=== PATIENT | male | born 1990 | race African-American/Black ===

== ENCOUNTER 2017-07-15 21:12 | Inpatient (IN) | payer SELFPAY ==
[~2017-07-15] VITALS: Ht 177.8 cm; Wt 80.0 kg
[~2017-07-15 21:12] MED LIST: NAPR500 PO
[2017-07-15 21:33] VITALS: BP 130/78; PULSE 74; RESP 16; TEMP 98; O2SAT 100
[2017-07-15] MEDS ORDERED: SODIUM CHLOR 0.9% 1000 ML INJ 1,000 ML IV ONE ×2 (21:45→23:00)
[2017-07-15 22:11] LABS: AUTOMATED NEUTROPHIL # 7.2 TH/MM3 (1.8-7.7); BASOPHIL # 0.1 TH/MM3 (0-0.2); BASOPHIL % 1.2 % (0.0-2.0); EOSINOPHIL % 0.5 % (0.0-4.0); HEMATOCRIT 40.8 % (39.0-51.0); HEMO FLAGS DIFF FINAL; LYMPH % 12.1 % (9.0-44.0); LYMPHOCYTE # 1.1 TH/MM3 (1.0-4.8); MEAN CELL VOLUME 82.9 FL (80.0-100.0); MEAN CORPUSCULAR HEMOGLOBIN 28.4 PG (27.0-34.0); MEAN CORPUSCULAR HGB CONC 34.2 % (32.0-36.0); MONO % 6.1 % (0.0-8.0); NEUT % 80.1 % (16.0-70.0); PLATELET COUNT 179 TH/MM3 (150-450); RED BLOOD COUNT 4.92 MIL/MM3 (4.50-5.90); RED CELL DISTRIBUTION WIDTH 13.3 % (11.6-17.2)
--- NOTE | 2017-07-15 22:21 | PD ---
HPI Chief Complaint: Musculoskeletal Complaint Time Seen by Provider: 21:34 Travel History International Travel<30 days: No Contact w/Intl Traveler<30days: No Traveled to known affect area: No History of Present Illness HPI 26-year-old male with no significant medical history presents to emergency department for evaluation of generalized body cramping towards the end of his Route. 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 He states that he drank some water but no more or less than he usually does. Denies chest tightness. Denies difficulty breathing. States his urine has been darker today. Denies any recent illnesses, fever, chills. No other symptoms to report. PFSH Past Medical History Medical History: Denies Significant Hx Diminished Hearing: No Past Surgical History Surgical History: No Previous Surgery Social History Alcohol Use: No Tobacco Use: Yes (1 PPD) Substance Use: No Allergies-Medications (Allergen,Severity, Reaction): Coded Allergies: No Known Allergies (Verified , 07/15/17) Reported Meds & Prescriptions Reported Meds & Active Scripts Active Review of Systems Except as stated in HPI: all other systems reviewed are Neg Physical Exam Narrative GENERAL: Well-nourished male patient, in no acute distress SKIN: Focused skin assessment warm/dry. HEAD: Atraumatic. Normocephalic. EYES: Pupils equal and round. No scleral icterus. No injection or drainage. ENT: No nasal bleeding or discharge. Mucous membranes pink and moist. NECK: Trachea midline. No JVD. CARDIOVASCULAR: Regular rate and rhythm. No murmur appreciated. RESPIRATORY: No accessory muscle use. Clear to auscultation. Breath sounds equal bilaterally. GASTROINTESTINAL: Abdomen soft, non-tender, nondistended. Hepatic and splenic margins not palpable. MUSCULOSKELETAL: No obvious deformities. No clubbing. No cyanosis. No edema. NEUROLOGICAL: Awake and alert. No obvious cranial nerve deficits. Motor grossly within normal limits. Normal speech. PSYCHIATRIC: Appropriate mood and affect; insight and judgment normal. Data Data Last Documented VS Vital Signs Date Time Temp Pulse Resp B/P (MAP) Pulse Ox O2 Delivery O2 Flow Rate FiO2 07/15/17 23:56 71 16 146/89 (108) 100 Room Air 07/15/17 21:33 98.0 Orders Orders Iv Access Insert/Monitor (07/15/17 21:38) Complete Blood Count With Diff (07/15/17 21:38) Basic Metabolic Panel (Bmp) (07/15/17 21:38) Creatine Kinase (Cpk) (07/15/17 21:38) Urinalysis - C+S If Indicated (07/15/17 21:38) Sodium Chlor 0.9% 1000 Ml Inj (Ns 1000 M (07/15/17 21:45) CKMB (07/15/17 21:45) CKMB% (07/15/17 21:45) Sodium Chlor 0.9% 1000 Ml Inj (Ns 1000 M (07/15/17 23:00) Sodium Chlor 0.9% 1000 Ml Inj (Ns 1000 M (07/16/17 00:30) Labs Laboratory Tests Test 07/15/17 21:45 07/15/17 21:50 White Blood Count 9.0 TH/MM3 Red Blood Count 4.92 MIL/MM3 Hemoglobin 14.0 GM/DL Hematocrit 40.8 % Mean Corpuscular Volume 82.9 FL Mean Corpuscular Hemoglobin 28.4 PG Mean Corpuscular Hemoglobin Concent 34.2 % Red Cell Distribution Width 13.3 % Platelet Count 179 TH/MM3 Mean Platelet Volume 7.3 FL Neutrophils (%) (Auto) 80.1 % Lymphocytes (%) (Auto) 12.1 % Monocytes (%) (Auto) 6.1 % Eosinophils (%) (Auto) 0.5 % Basophils (%) (Auto) 1.2 % Neutrophils # (Auto) 7.2 TH/MM3 Lymphocytes # (Auto) 1.1 TH/MM3 Monocytes # (Auto) 0.5 TH/MM3 Eosinophils # (Auto) 0.0 TH/MM3 Basophils # (Auto) 0.1 TH/MM3 CBC Comment DIFF FINAL Differential Comment Blood Urea Nitrogen 27 MG/DL Creatinine 1.56 MG/DL Random Glucose 125 MG/DL Calcium Level 8.3 MG/DL Sodium Level 135 MEQ/L Potassium Level 4.0 MEQ/L Chloride Level 102 MEQ/L Carbon Dioxide Level 23.7 MEQ/L Anion Gap 9 MEQ/L Estimat Glomerular Filtration Rate 66 ML/MIN Total Creatine Kinase 1708 U/L Creatine Kinase MB 3.9 NG/ML Creatine Kinase MB % 0.2 % Urine Color YELLOW Urine Turbidity CLEAR Urine pH 5.5 Urine Specific [place] 1.020 Urine Protein 30 mg/dL Urine Glucose (UA) NEG mg/dL Urine Ketones NEG mg/dL Urine Occult Blood NEG Urine Nitrite NEG Urine Bilirubin NEG Urine Urobilinogen LESS THAN 2.0 MG/DL Urine Leukocyte Esterase NEG Urine RBC 1 /hpf Urine WBC 2 /hpf Urine Amorphous Sediment RARE Urine Mucus FEW /lpf Microscopic Urinalysis Comment CULT NOT INDICATED MDM Medical Decision Making Medical Screen Exam Complete: Yes Emergency Medical Condition: Yes Medical Record Reviewed: Yes Differential Diagnosis Rhabdomyolysis versus dehydration versus electrolyte abnormality versus muscle spasm Narrative Course 26-year-old male presents to emergency department for evaluation of body cramping. Patient appears without distress. He received 2 L normal saline bolus in route by [facility]. Lab work and urine are ordered. Patient is given additional normal saline IV fluid. Laboratory Tests Test 07/15/17 21:45 07/15/17 21:50 White Blood Count 9.0 TH/MM3 Red Blood Count 4.92 MIL/MM3 Hemoglobin 14.0 GM/DL Hematocrit 40.8 % Mean Corpuscular Volume 82.9 FL Mean Corpuscular Hemoglobin 28.4 PG Mean Corpuscular Hemoglobin Concent 34.2 % Red Cell Distribution Width 13.3 % Platelet Count 179 TH/MM3 Mean Platelet Volume 7.3 FL Neutrophils (%) (Auto) 80.1 % Lymphocytes (%) (Auto) 12.1 % Monocytes (%) (Auto) 6.1 % Eosinophils (%) (Auto) 0.5 % Basophils (%) (Auto) 1.2 % Neutrophils # (Auto) 7.2 TH/MM3 Lymphocytes # (Auto) 1.1 TH/MM3 Monocytes # (Auto) 0.5 TH/MM3 Eosinophils # (Auto) 0.0 TH/MM3 Basophils # (Auto) 0.1 TH/MM3 CBC Comment DIFF FINAL Differential Comment Blood Urea Nitrogen 27 MG/DL Creatinine 1.56 MG/DL Random Glucose 125 MG/DL Calcium Level 8.3 MG/DL Sodium Level 135 MEQ/L Potassium Level 4.0 MEQ/L Chloride Level 102 MEQ/L Carbon Dioxide Level 23.7 MEQ/L Anion Gap 9 MEQ/L Estimat Glomerular Filtration Rate 66 ML/MIN Total Creatine Kinase 1708 U/L Creatine Kinase MB 3.9 NG/ML Creatine Kinase MB % 0.2 % Urine Color YELLOW Urine Turbidity CLEAR Urine pH 5.5 Urine Specific [place] 1.020 Urine Protein 30 mg/dL Urine Glucose (UA) NEG mg/dL Urine Ketones NEG mg/dL Urine Occult Blood NEG Urine Nitrite NEG Urine Bilirubin NEG Urine Urobilinogen LESS THAN 2.0 MG/DL Urine Leukocyte Esterase NEG Urine RBC 1 /hpf Urine WBC 2 /hpf Urine Amorphous Sediment RARE Urine Mucus FEW /lpf Microscopic Urinalysis Comment CULT NOT INDICATED Patient's total CK is 1708. There is some renal insufficiency. Discussed the patient with my attending physician. A call has been placed at [facility] observation admission to ensure renal function is not worsening and total CK is improving. Diagnosis Primary Impression: Rhabdomyolysis Qualified Codes: M62.82 - Rhabdomyolysis Admitting Information Admitting Physician Requests: Observation Condition: Stable Hilary Guerrero Jul 15, 2017 22:21
[2017-07-15 22:42] LABS: BICARBONATE 23.7 MEQ/L (21.0-32.0)
[2017-07-15 22:47] LABS: BLOOD, URINE NEG (NEG); COMMENT (UR) CULT NOT INDICATED; CULTURE IF INDICATED CULT NOT INDICATED; GLUCOSE,URINE NEG (NEG); KETONE, URINE NEG (NEG); MUCUS URINE FEW /lpf (OCC); NITRITE,URINE NEG (NEG); PH, URINE 5.5 (5.0-8.5); URINE COLOR YELLOW (YELLW/STRAW)
[2017-07-15 23:07] LABS: CKMB 3.9 NG/ML (0.5-3.6)
[2017-07-15 23:56] VITALS: BP 146/89; PULSE 71; RESP 16; O2SAT 100
[2017-07-16] VITALS (8 sets, daily range): BP systolic 112–127; BP diastolic 57–78; PULSE 53–126; RESP 18–20; TEMP 97.5–98.5; O2SAT 95–99
[2017-07-16] MEDS ORDERED: SODIUM CHLOR 0.9% 1000 ML INJ 1,000 ML IV ONE (00:30)
--- NOTE | 2017-07-16 00:32 | PD ---
Physical Exam Narrative 26yo M with no PMH presents to the ED with c/o generalized cramping for 4 hours. 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 Denies any fever, trauma, chest pain, sob, n/v, abdominal pain, focal weakness or numbness. Labs reviewed, no leukocytosis. BUN/creatinine 27/1.56 which is elevated from baseline. CPK is also elevated at 1708. Pt reevaluated after 2 liters of NS IVF and is feeling. Pt has been urinating. Will order a third liter of NS IVF and admit for observation for rhabdomyolysis and ANGELICA. Data Data Last Documented VS Vital Signs Date Time Temp Pulse Resp B/P (MAP) Pulse Ox O2 Delivery O2 Flow Rate FiO2 07/15/17 23:56 71 16 146/89 (108) 100 Room Air 07/15/17 21:33 98.0 Orders Orders Iv Access Insert/Monitor (07/15/17 21:38) Complete Blood Count With Diff (07/15/17 21:38) Basic Metabolic Panel (Bmp) (07/15/17 21:38) Creatine Kinase (Cpk) (07/15/17 21:38) Urinalysis - C+S If Indicated (07/15/17 21:38) Sodium Chlor 0.9% 1000 Ml Inj (Ns 1000 M (07/15/17 21:45) CKMB (07/15/17 21:45) CKMB% (07/15/17 21:45) Sodium Chlor 0.9% 1000 Ml Inj (Ns 1000 M (07/15/17 23:00) Ns (Bolus) Inj (07/16/17 00:30) Labs Laboratory Tests Test 07/15/17 21:45 07/15/17 21:50 White Blood Count 9.0 TH/MM3 Red Blood Count 4.92 MIL/MM3 Hemoglobin 14.0 GM/DL Hematocrit 40.8 % Mean Corpuscular Volume 82.9 FL Mean Corpuscular Hemoglobin 28.4 PG Mean Corpuscular Hemoglobin Concent 34.2 % Red Cell Distribution Width 13.3 % Platelet Count 179 TH/MM3 Mean Platelet Volume 7.3 FL Neutrophils (%) (Auto) 80.1 % Lymphocytes (%) (Auto) 12.1 % Monocytes (%) (Auto) 6.1 % Eosinophils (%) (Auto) 0.5 % Basophils (%) (Auto) 1.2 % Neutrophils # (Auto) 7.2 TH/MM3 Lymphocytes # (Auto) 1.1 TH/MM3 Monocytes # (Auto) 0.5 TH/MM3 Eosinophils # (Auto) 0.0 TH/MM3 Basophils # (Auto) 0.1 TH/MM3 CBC Comment DIFF FINAL Differential Comment Blood Urea Nitrogen 27 MG/DL Creatinine 1.56 MG/DL Random Glucose 125 MG/DL Calcium Level 8.3 MG/DL Sodium Level 135 MEQ/L Potassium Level 4.0 MEQ/L Chloride Level 102 MEQ/L Carbon Dioxide Level 23.7 MEQ/L Anion Gap 9 MEQ/L Estimat Glomerular Filtration Rate 66 ML/MIN Total Creatine Kinase 1708 U/L Creatine Kinase MB 3.9 NG/ML Creatine Kinase MB % 0.2 % Urine Color YELLOW Urine Turbidity CLEAR Urine pH 5.5 Urine Specific [place] 1.020 Urine Protein 30 mg/dL Urine Glucose (UA) NEG mg/dL Urine Ketones NEG mg/dL Urine Occult Blood NEG Urine Nitrite NEG Urine Bilirubin NEG Urine Urobilinogen LESS THAN 2.0 MG/DL Urine Leukocyte Esterase NEG Urine RBC 1 /hpf Urine WBC 2 /hpf Urine Amorphous Sediment RARE Urine Mucus FEW /lpf Microscopic Urinalysis Comment CULT NOT INDICATED MDM Supervised Visit with KARTHIK: Yes Diagnosis Primary Impression: Rhabdomyolysis Qualified Codes: M62.82 - Rhabdomyolysis Admitting Information Admitting Physician Requests: Observation Condition: Stable Amanda Roberts DO Jul 16, 2017 00:32
[2017-07-16] MEDS ORDERED: NALOXONE HCL 0.4 MG/ML AMP IV PUSH PRN (02:00)
[2017-07-16] MEDS ORDERED: SODIUM CHLORIDE 0.9% FLUSH 10 ML FLUSH IV FLUSH PRN (02:00)
[2017-07-16] MEDS: SODIUM CHLOR 0.9% 1000 ML INJ 1,000 ML IV SCH ×2 (02:27→12:10)
--- NOTE | 2017-07-16 05:12 | HHI.HP ---
[facility] Primary Care Physician Unknown Admission Diagnosis rhabdomyolysis Diagnoses: Chief Complaint: muscle cramping Travel History International Travel<30 Days: No Contact w/Intl Traveler <30 Da: No Traveled to Known Affected Are: No History of Present Illness Written by JARET Gong acting as scribe for [Roberto] on 07/16/17 at 05: 08. 26 y/o male with no medical history presented to the ED with complaints of muscle cramping. 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 He does drink water but not as much today. He is new to the job, only been working for the last month and a half. Denies any use of creatine supplements or working out. Denies any chest pain, sob, fever or chills. Review of Systems Except as stated in HPI: all other systems reviewed are Neg Past Family Social History Past Medical History Patient denies any medical history Past Surgical History Patient denies any surgical history Reported Medications Reported Meds & Active Scripts Active Allergies: Coded Allergies: No Known Allergies (Verified , 07/15/17) Active Ordered Medications Current Medications Medications (Trade) Dose Ordered Sig/Teo Route Start Time Stop Time Status Last Admin Sodium Chloride 1,000 ml @ 100 mls/hr Q10H IV 07/16/17 01:49 07/16/17 02:27 (NS Flush) 2 ml UNSCH PRN IV FLUSH 07/16/17 02:00 (NS Flush) 2 ml BID IV FLUSH 07/16/17 09:00 (Narcan Inj) 0.4 mg UNSCH PRN IV PUSH 07/16/17 02:00 Family History Grandma: Heart disease Aunt: DM Social History Tobacco use: 1/2 PPD Alcohol use: Denies Illicit drug use: Denies Physical Exam Vital Signs Vital Signs Date Time Temp Pulse Resp B/P (MAP) Pulse Ox O2 Delivery O2 Flow Rate FiO2 07/16/17 04:23 98.5 66 18 117/57 (77) 97 07/16/17 03:40 07/15/17 23:56 71 16 146/89 (108) 100 Room Air 07/15/17 21:33 98.0 74 16 130/78 (95) 100 Physical Exam GENERAL: This is a well-nourished, well-developed patient, in no apparent distress. SKIN: No rashes, ecchymoses or lesions. Cool and dry. HEAD: Atraumatic. Normocephalic. EYES: Pupils equal round and reactive. ENT: Nose without bleeding, purulent drainage or septal hematoma. NECK: Trachea midline. No JVD CARDIOVASCULAR: Regular rate and rhythm without murmurs, gallops, or rubs. RESPIRATORY: Clear to auscultation. Breath sounds equal bilaterally. No wheezes , rales, or rhonchi. GASTROINTESTINAL: Abdomen soft, non-tender, nondistended. MUSCULOSKELETAL: Extremities without clubbing, cyanosis, or edema. No calf tenderness. NEUROLOGICAL: Awake and alert. Motor and sensory grossly within normal limits. Normal speech. Laboratory Laboratory Tests Test 07/15/17 21:45 07/15/17 21:50 White Blood Count 9.0 Red Blood Count 4.92 Hemoglobin 14.0 Hematocrit 40.8 Mean Corpuscular Volume 82.9 Mean Corpuscular Hemoglobin 28.4 Mean Corpuscular Hemoglobin Concent 34.2 Red Cell Distribution Width 13.3 Platelet Count 179 Mean Platelet Volume 7.3 Neutrophils (%) (Auto) 80.1 Lymphocytes (%) (Auto) 12.1 Monocytes (%) (Auto) 6.1 Eosinophils (%) (Auto) 0.5 Basophils (%) (Auto) 1.2 Neutrophils # (Auto) 7.2 Lymphocytes # (Auto) 1.1 Monocytes # (Auto) 0.5 Eosinophils # (Auto) 0.0 Basophils # (Auto) 0.1 CBC Comment DIFF FINAL Differential Comment Blood Urea Nitrogen 27 Creatinine 1.56 Random Glucose 125 Calcium Level 8.3 Sodium Level 135 Potassium Level 4.0 Chloride Level 102 Carbon Dioxide Level 23.7 Anion Gap 9 Estimat Glomerular Filtration Rate 66 Total Creatine Kinase 1708 Creatine Kinase MB 3.9 Creatine Kinase MB % 0.2 Urine Color YELLOW Urine Turbidity CLEAR Urine pH 5.5 Urine Specific [place] 1.020 Urine Protein 30 Urine Glucose (UA) NEG Urine Ketones NEG Urine Occult Blood NEG Urine Nitrite NEG Urine Bilirubin NEG Urine Urobilinogen LESS THAN 2.0 Urine Leukocyte Esterase NEG Urine RBC 1 Urine WBC 2 Urine Amorphous Sediment RARE Urine Mucus FEW Microscopic Urinalysis Comment CULT NOT INDICATED Result Diagram: 07/15/17214407/15/172144 [facility] VTE Risk Assessment Caprin VTE Risk Assessment: No/Low Risk (score <= 1) Caprini Risk Assessment Model Point Value = 1 Point Value = 2 Point Value = 3 Point Value = 5 Age 41-60 Minor surgery BMI > 25 kg/m2 Swollen legs Varicose veins or History of unexplained or recurrent spontaneous Oral contraceptives or hormone replacement Sepsis (< 1 month) Serious lung disease, including pneumonia (< 1 month) Abnormal pulmonary function Acute myocardial infarction Congestive heart failure (< 1 month) History of inflammatory bowel disease Medical patient at bed rest Age 61-74 Arthroscopic surgery Major open surgery (> 45 min) Laparoscopic surgery (> 45 min) Malignancy Confined to bed (> 72 hours) Immobilizing plaster cast Central venous access Age >= 75 History of VTE Family history of VTE Factor V Leiden Prothrombin [id number] Lupus anticoagulant Anticardiolipin antibodies Elevated serum homocysteine Heparin-induced thrombocytopenia Other congenital or acquired thrombophilia Stroke (< 1 month) Elective arthroplasty Hip, pelvis, or leg fracture Acute spinal cord injury (< 1 month) Prophylaxis Regimen Total Risk Factor Score Risk Level Prophylaxis Regimen 0-1 Low Early ambulation 2 Moderate Order ONE of the following: *Sequential Compression Device (SCD) *Heparin 5000 units SQ BID 3-4 Higher Order ONE of the following medications: *Heparin 5000 units SQ TID *Enoxaparin/Lovenox 40 mg SQ daily (WT < 150 kg, CrCl > 30 mL/min) *Enoxaparin/Lovenox 30 mg SQ daily (WT < 150 kg, CrCl > 10-29 mL/min) *Enoxaparin/Lovenox 30 mg SQ BID (WT < 150 kg, CrCl > 30 mL/min) AND/OR *Sequential Compression Device (SCD) 5 or more Highest Order ONE of the following medications: *Heparin 5000 units SQ TID (Preferred with Epidurals) *Enoxaparin/Lovenox 40 mg SQ daily (WT < 150 kg, CrCl > 30 mL/min) *Enoxaparin/Lovenox 30 mg SQ daily (WT < 150 kg, CrCl > 10-29 mL/min) *Enoxaparin/Lovenox 30 mg SQ BID (WT < 150 kg, CrCl > 30 mL/min) AND *Sequential Compression Device (SCD) Assessment and Plan Problem List: (1) Acute kidney injury ICD Code: N17.9 - Acute kidney failure, unspecified Status: Resolved (2) Rhabdomyolysis ICD Code: M62.82 - Rhabdomyolysis Status: Acute Assessment and Plan 26 y/o male with no medical history presented to the ED with complaints of muscle cramping. Rhabdomyolysis with acute kidney injury, CK 1708, creatine 1.56, suspect due to dehydration and strenuous activity -3L NS bolus given in ED, cont IVF for hydration -Labs in AM DVT prophylaxis: SCDs This note was transcribed by scribyissel [Carlene Martell]. I, Dr. Pamella Mejia personally performed the history, physical exam, and medical decision making; and confirmed the accuracy of the information in the transcribed note. Authenticated by Dr. Pamella Mejia on 07/16/17 at 05:08. Discussed Condition With Patient Physician Certification 2 Midnight Certification Type: Admission for Inpatient Services Order for Inpatient Services The services are ordered in accordance with Medicare regulations or non- Medicare payer requirements, as applicable. In the case of services not specified as inpatient-only, they are appropriately provided as inpatient services in accordance with the 2-midnight benchmark. Estimated LOS (days): 2 days is the estimated time the patient will need to remain in the hospital, assuming treatment plan goals are met and no additional complications. Post-Hospital Plan: Home Problem Qualifiers (1) Rhabdomyolysis: Qualified Codes: M62.82 - Rhabdomyolysis Carlene Martell Jul 16, 2017 05:12 Pamella Mejia MD Jul 18, 2017 10:12
[2017-07-16 07:03] LABS: AUTOMATED NEUTROPHIL # 4.4 TH/MM3 (1.8-7.7); BASOPHIL % 0.3 % (0.0-2.0); EOSINOPHIL # 0.4 TH/MM3 (0-0.4); EOSINOPHIL % 5.6 % (0.0-4.0); HEMATOCRIT 39.2 % (39.0-51.0); HEMO FLAGS DIFF FINAL; LYMPH % 29.5 % (9.0-44.0); LYMPHOCYTE # 2.3 TH/MM3 (1.0-4.8); MEAN CORPUSCULAR HEMOGLOBIN 28.6 PG (27.0-34.0); MEAN CORPUSCULAR HGB CONC 33.6 % (32.0-36.0); MONO % 8.7 % (0.0-8.0); NEUT % 55.9 % (16.0-70.0); PLATELET COUNT 161 TH/MM3 (150-450); RED BLOOD COUNT 4.61 MIL/MM3 (4.50-5.90); RED CELL DISTRIBUTION WIDTH 13.9 % (11.6-17.2); WHITE BLOOD COUNT 7.8 TH/MM3 (4.0-11.0)
[2017-07-16 07:52] LABS: BICARBONATE 21.9 MEQ/L (21.0-32.0)
[2017-07-16] MEDS: SODIUM CHLORIDE 0.9% FLUSH 10 ML FLUSH IV FLUSH SCH ×2 (07:55→21:00)
[2017-07-16 08:14] LABS: CKMB 6.1 NG/ML (0.5-3.6)
--- NOTE | 2017-07-16 12:54 | HHI.PR ---
Subjective Remarks Follow up rhabdomyolysis. The patient states that he feels much better. His pain has resolved. No chest pain, dyspnea, nausea, vomiting. Objective Vitals Vital Signs Date Time Temp Pulse Resp B/P (MAP) Pulse Ox O2 Delivery O2 Flow Rate FiO2 07/16/17 11:44 97.7 67 18 114/66 (82) 98 07/16/17 08:19 59 07/16/17 08:07 98.0 126 20 112/68 (83) 97 07/16/17 04:56 64 07/16/17 04:23 98.5 66 18 117/57 (77) 97 07/16/17 03:40 07/15/17 23:56 71 16 146/89 (108) 100 Room Air 07/15/17 21:33 98.0 74 16 130/78 (95) 100 I/O 07/15/17 07/15/17 07/15/17 07/16/17 07/16/17 07/16/17 07:00 15:00 23:00 07:00 15:00 23:00 Intake Total 1000 ml 2300 ml Balance 1000 ml 2300 ml Intake IV Total 1000 ml 2300 ml Result Diagram: 07/16/17 0613 07/16/17 0613 Objective Remarks General: No acute distress. Heart: Regular rate and rhythm. No murmur. Lungs: Clear to auscultation bilaterally. No wheezes, rales, or rhonchi. Breathing is nonlabored. Abdomen: Soft, nontender, nondistended. Extremities: No lower extremity edema. No calf tenderness. Psych: Alert and oriented. Procedures None Urinary Catheter: No Vascular Central Line Catheter: No A/P Problem List: (1) Acute kidney injury ICD Code: N17.9 - Acute kidney failure, unspecified Status: Acute (2) Rhabdomyolysis ICD Code: M62.82 - Rhabdomyolysis Status: Acute Assessment and Plan 1. Rhabdomyolysis: Follow serum CK. Continue IV fluids. Symptoms have resolved. 2. Acute kidney injury: Secondary to dehydration. Creatinine improved today. Continue IV fluids. 3. DVT prophylaxis: SCDs. Discharge Planning Possible discharge tomorrow pending further clinical improvement. Problem Qualifiers (1) Rhabdomyolysis: Qualified Codes: M62.82 - Rhabdomyolysis Wicho Whyte MD Jul 16, 2017 12:54
[2017-07-16] MEDS: NICOTINE 7 MG/24 HR PATCH T-DERMAL SCH (13:57)
[2017-07-16] MEDS: REMOVE OLD PATCH T-DERMAL SCH (14:00)
[2017-07-17 00:16] VITALS: BP 126/84; PULSE 64; RESP 18; TEMP 98; O2SAT 98
[2017-07-17] MEDS: SODIUM CHLOR 0.9% 1000 ML INJ 1,000 ML IV SCH ×2 (02:57→07:21)
[2017-07-17 04:00] VITALS: BP 134/64; PULSE 60; RESP 18; TEMP 97.4; O2SAT 100
[2017-07-17 08:00] VITALS: BP 123/68; PULSE 63; RESP 20; TEMP 97.9; O2SAT 100
[2017-07-17] MEDS: SODIUM CHLORIDE 0.9% FLUSH 10 ML FLUSH IV FLUSH SCH (08:35)
[2017-07-17] MEDS: NICOTINE 7 MG/24 HR PATCH T-DERMAL SCH (08:35)
[2017-07-17] MEDS: REMOVE OLD PATCH T-DERMAL SCH (08:35)
[2017-07-17 09:46] VITALS: PULSE 74
[2017-07-17 10:18] LABS: BICARBONATE 26.2 MEQ/L (21.0-32.0); POTASSIUM 4.4 MEQ/L (3.5-5.1)
[2017-07-17 10:49] LABS: CKMB 3.4 NG/ML (0.5-3.6)
[2017-07-17 12:00] VITALS: BP 130/91; PULSE 68; RESP 20; TEMP 98.4; O2SAT 99
--- NOTE | 2017-07-17 14:22 | HHI.PR ---
Subjective Remarks No further muscle cramps. Doing well. Wants to go home. Objective Vitals Vital Signs Date Time Temp Pulse Resp B/P (MAP) Pulse Ox O2 Delivery O2 Flow Rate FiO2 07/17/17 12:00 98.4 68 20 130/91 (104) 99 07/17/17 09:46 74 07/17/17 08:00 97.9 63 20 123/68 (86) 100 07/17/17 04:00 97.4 60 18 134/64 (87) 100 07/17/17 00:16 98.0 64 18 126/84 (98) 98 07/16/17 20:00 98.0 60 18 127/78 (94) 95 07/16/17 19:55 53 07/16/17 16:00 97.5 54 20 117/67 (84) 99 I/O 07/16/17 07/16/17 07/16/17 07/17/17 07/17/17 07/17/17 07:00 15:00 23:00 07:00 15:00 23:00 Intake Total 2300 ml Balance 2300 ml Intake IV Total 2300 ml # Voids 2 3 Result Diagram: 07/16/17 0613 07/17/17 0902 Objective Remarks GENERAL: This is a well-nourished, well-developed patient, in no apparent distress. CARDIOVASCULAR: Regular rate and rhythm RESPIRATORY: Clear to auscultation. Breath sounds equal bilaterally. No wheezes , rales, or rhonchi. GASTROINTESTINAL: Abdomen soft, non-tender, nondistended. Normal active bowel sounds MUSCULOSKELETAL: Extremities without clubbing, cyanosis, or edema. NEURO: Alert & Oriented x4 to person, place, time, situation. Moves all ext x4 Procedures None A/P Problem List: (1) Acute kidney injury ICD Code: N17.9 - Acute kidney failure, unspecified Status: Resolved (2) Rhabdomyolysis ICD Code: M62.82 - Rhabdomyolysis Status: Acute Assessment and Plan 1. Rhabdomyolysis: CPK trending down and improving 2. Acute kidney injury resolved secondary to Dehydration and heat exhaustion. Creatinine improved today. Continue IV fluids. 3. DVT prophylaxis: SCDs. Discharge Planning Discharge patient to home Condition on discharge: Improved Regular Diet as tolerated Ad Dede activity No new Rx written: Follow-up with primary care physician Problem Qualifiers (1) Rhabdomyolysis: Qualified Codes: M62.82 - Rhabdomyolysis Hedy Medellin MD Jul 17, 2017 14:22
--- NOTE | 2017-07-17 14:23 | HHI.DCPOC ---
Discharge Care Plan Diagnosis: (1) Rhabdomyolysis Goals to Promote Your Health * To prevent worsening of your condition and complications * To maintain your health at the optimal level Directions to Meet Your Goals Take your medications as prescribed Follow your dietary instruction Follow activity as directed Keep your appointments as scheduled Take your immunizations and boosters as scheduled If your symptoms worsen call your PCP, if no PCP go to Urgent Care Center or Emergency Room Smoking is Dangerous to Your Health. Avoid second hand smoke Call the 24-hour hour crisis hotline for domestic abuse at Hedy Medellin MD Jul 17, 2017 14:23
== END 2017-07-17 15:16 | disposition home or self-care (01) | DRG 558 ==
LOC: NEPD 21:12 → NEDA 07-16 01:49 → OBSVTOIN 07-16 01:50 → NEPGCP 07-16 03:44 → N05B 07-16 14:21
PROVIDERS: ADMIT Family Medicine; ATTEND Family Medicine
DX: M62.82 Rhabdomyolysis (principal); N17.9 Acute kidney failure, unspecified; Z72.0 Tobacco use; E86.0 Dehydration
CPT/HCPCS: 80048; 81001; 82550; 82552; 85025; 96360; 96361; J7030